=== PATIENT | female | born 1960 | race Caucasian/White ===

== ENCOUNTER 2018-08-24 17:42 | Emergency (ER) | payer OTHER ==
[~2018-08-24] VITALS: Ht 157.5 cm; Wt 71.4 kg
[2018-08-24 18:16] VITALS: Ht 157.5 cm; Wt 71.4 kg
[2018-08-24] MEDS ORDERED: IBUPROFEN 600 MG TAB PO ONE (19:00)
[2018-08-24 20:06] VITALS: BP 142/83; PULSE 72; RESP 16
[2018-08-24] MEDS ORDERED: CLON-379 PO (20:10)
[2018-08-24] MEDS ORDERED: AZIT500T3 PO (20:12)
[2018-08-24] MEDS ORDERED: IBUP-1542 PO (20:12)
--- NOTE | 2018-08-24 20:13 | ERD ---
ER Documentation Chief Complaint Chief Complaint C/O H/A AND BILATERAL EAR PAIN, PRESSURE FOR A MONTH HPI 57-year-old female presents to emergency department complaining of severe headache, bilateral ear pain and pressure x1 month. She reports that she has been hearing "roaring sounds" in her bilateral ears x1 month. She states that her symptoms are intermittent but worse today. She states no previous history of similar events. She denies any ear pain but states that she feels congested in the ears. In addition she reports a headache that is located around her eyes and back of her head. She reports tearing of her eyes. She has applied ice packs to the back of her head which has helped improve her symptoms. She reports the headache as 9 out of 10 intensity and states that nothing makes it better or worse. She denies radiation of her pain. Describes it as a throbbing pain She also reports hypertension history in which she takes amlodipine and HCTZ prescribed by her primary care however these 2 medications are not controlling her blood pressure very well even though patient reports good compliance Past medical history: Hypertension, hypothyroidism Allergies to penicillin ROS All systems reviewed and are negative except as per history of present illness. Medications Home Meds Active Scripts Ibuprofen* (Motrin*) 600 Mg Tab, 600 MG PO Q6H PRN for PAIN AND OR ELEVATED TEMP, #30 TAB Prov:CHANDAN THIBODEAUX PA-C 08/24/18 Azithromycin* (Zithromax*) 500 Mg Tablet, 500 MG PO DAILY for 3 Days, TAB Prov:CHANDAN THIBODEAUX PA-C 08/24/18 Clonidine Hcl* (Clonidine Hcl*) 0.1 Mg Tab, 0.1 MG PO TID, #10 TAB Prov:CHANDAN THIBODEAUX PA-C 08/24/18 PMhx/Soc Hx Cardiac Disorders: Yes (HTN) Hx Miscellaneous Medical Probl: Yes (HYPOTHYROIDISM) Hx Alcohol Use: No Hx Substance Use: No Hx Tobacco Use: No Smoking Status: Never smoker FmHx Family History: No diabetes Physical Exam Vitals Vital Signs Date Temp Pulse Resp B/P (MAP) Pulse Ox O2 O2 Flow FiO2 Time Delivery Rate 08/24/18 98.0 72 16 142/83 96 Room Air 20:06 (102) 08/24/18 98.3 79 18 208/97 97 18:16 (134) Physical Exam Const: No acute distress Head: Atraumatic, tenderness to the back right of her head, sinus pressure tenderness to the frontal sinuses Eyes: Normal Conjunctiva ENT: Normal External Ears, Nose and Mouth. Ears: Slight fluid present in bilateral ears Neck: Full range of motion. No meningismus. Resp: Clear to auscultation bilaterally Cardio: Regular rate and rhythm, no murmurs Abd: Soft, non tender, non distended. Normal bowel sounds Skin: No petechiae or rashes Back: No midline or flank tenderness Ext: No cyanosis, or edema Neur: Awake and alert Psych: Normal Mood and Affect Results 24 hrs Current Medications Medications Dose Sig/Gray Start Time Status Last (Trade) Ordered Route PRN Stop Time Admin Dose Reason Admin Clonidine 0.1 mg ONCE ONCE 08/24/18 DC 08/24/18 (Catapres) PO 19:00 18:44 08/24/18 19:01 Ibuprofen 600 mg ONCE ONCE 08/24/18 DC 08/24/18 (Motrin) PO 19:00 18:43 08/24/18 19:01 Procedures/MDM ED COURSE: The patient was stable throughout ED course. I kept the patient informed of laboratory and diagnostic imaging results throughout the ED course. DIAGNOSTIC IMAGING: Read by radiologist. PROCEDURE: CT Brain without contrast. CLINICAL INDICATION: New onset headache TECHNIQUE: A CT of the brain was performed on a [employer] 64-slice CT scanner utilizing axial imaging from the skull base through the vertex without IV contrast. Multiplanar reformatted images were made. Images were reviewed on a PACS workstation. The CTDIvol is 36.07 mGy and the DLP is 634.23 mGycm. DICOM images are available. One or more of the following dose reduction techniques were utilized: 1.) Automated exposure control 2.) Adjustment of the mA +/- kV according to patient's size 3.) Use of iterative reconstruction technique. COMPARISON: None FINDINGS: There is no intracranial hemorrhage, mass effect, or midline shift. No extra- axial fluid collection is seen. The ventricles and sulci are normal in size and configuration. The density of the brain is normal, and the bryant white matter differentiation appears well-preserved. The visualized paranasal sinuses and osseous structures are grossly unremarkable. IMPRESSION: 1. No evidence of acute intracranial pathology. Physician Cassandra Date Time Electronically viewed and signed by Bimal Stauffer Physician on 08/24/2018 19:23 PROCEDURES: none MEDICATIONS GIVEN: Clonidine, motrin MEDICAL DECISION MAKING: Patient is a 57-year-old female presenting with new onset of headache and ear pressure x1 month. She states that her symptoms are much worse today which is why she came to the ED. However in triage her blood pressure was recorded as 208/97. She states that she feels that her blood pressure is high. She normally takes amlodipine and HCTZ prescribed by her primary care and states good compliance to the medical regimen. However the medication is not helping manage her hypertension very well. Patient was given clonidine in the ED which brought her blood pressure down to 142/86. Physical exam patient showed sinus pressure, fluid in bilateral ears, and tenderness to the back of her head and across the sinuses and around the eyes. Patient was given Motrin as well in the ED which helped improve her symptoms with the clonidine bringing down her blood pressure. Patient was told to follow-up with primary care tomorrow in order to manage her hypertension symptoms. Since this was a sudden worsening headache, I consulted with Dr. Mckenzie which he recommended I ordered a CT scan of her brain which was negative. H&P and other data not c/w emergent process (eg. Subarachnoid hemorrhage, acute vertebral or carotid dissection, intracranial mass, epidural hematoma, subdural hematoma, dural venous sinus thrombosis, giant cell arteritis, pseudotumor cerebri, meningitis, mass, intracranial bleed). Vital signs were reviewed. Patient is afebrile. Patient was not hypoxic. Patient was hemodynamically stable. Patient was told to follow up with primary care for further care and management. PRESCRIPTION: Clonidine, Azitrhomycin, motrin DISCHARGE: At this time, patient is stable for discharge and outpatient management. I have instructed the patient to follow-up with his/her primary care physician in 1-2 days. I have discussed with the patient the possibility of needing to see a specialist for further workup and imaging studies if symptoms persist. I have instructed the patient to promptly return to the ER for any new or worsening symptoms including increased pain, fever, nausea, vomiting, weakness or LOC. The patient expressed understanding of and agreement with this plan. All questions were answered. Home care instructions were provided. Disclaimer: Inadvertent spelling and grammatical errors are likely due to EHR/dictation software use and do not reflect on the overall quality of patient care. Also, please note that the electronic time recorded on this note does not necessarily reflect the actual time of the patient encounter. Departure Diagnosis: Primary Impression: HTN (hypertension) Hypertension type: unspecified Qualified Codes: I10 - Essential (primary) hypertension Additional Impressions: Headache Headache type: unspecified Headache chronicity pattern: acute headache Intractability: not intractable Qualified Codes: R51 - Headache Ear pain Laterality: bilateral Qualified Codes: H92.03 - Otalgia, bilateral Condition: Fair Patient Instructions: High Blood Pressure (Hypertension) Referrals: [facility] YOU HAVE RECEIVED A MEDICAL SCREENING EXAM AND THE RESULTS INDICATE THAT YOU DO NOT HAVE A CONDITION THAT REQUIRES URGENT TREATMENT IN THE EMERGENCY DEPARTMENT. FURTHER EVALUATION AND TREATMENT OF YOUR CONDITION CAN WAIT UNTIL YOU ARE SEEN IN YOUR DOCTORS OFFICE WITHIN THE NEXT 1-2 DAYS. IT IS YOUR RESPONSIBILITY TO MAKE AN APPOINTMENT FOR FOL-UP CARE. IF YOU HAVE A PRIMARY DOCTOR --you should call your primary doctor and schedule an appointment IF YOU DO NOT HAVE A PRIMARY DOCTOR YOU CAN CALL OUR PHYSICIAN REFERRAL HOTLINE AT IF YOU CAN NOT AFFORD TO SEE A PHYSICIAN YOU CAN CHOSE FROM THE FOLLOWING [facility] [address] [facility]. [facility] [address] [facility] [facility] [address] [facility] [address] [facility] [facility] [address] [facility] [facility]. [address] [facility]. [facility] YOU HAVE RECEIVED A MEDICAL SCREENING EXAM AND THE RESULTS INDICATE THAT YOU DO NOT HAVE A CONDITION THAT REQUIRES URGENT TREATMENT IN THE EMERGENCY DEPARTMENT. FURTHER EVALUATION AND TREATMENT OF YOUR CONDITION CAN WAIT UNTIL YOU ARE SEEN IN YOUR DOCTORS OFFICE WITHIN THE NEXT 1-2 DAYS. IT IS YOUR RESPONSIBILITY TO MAKE AN APPOINTMENT FOR [facility]. IF YOU HAVE A PRIMARY DOCTOR --you should call your primary doctor and schedule and appointment IF YOU DO NOT HAVE A PRIMARY DOCTOR YOU CAN CALL OUR PHYSICIAN REFERRAL HOTLINE AT . IF YOU CAN NOT AFFORD TO SEE A PHYSICIAN YOU CAN CHOSE FROM THE FOLLOWING [facility] INSTITUTIONS: [facility] [address] [place] [address] [facility] [address] [place] [address] [facility] [address] [place] [address] Additional Instructions: Llame al doctor MAANA y bladimir leilani FITZ PARA DENTRO DE 1-2 BERUMEN.Dgale a la secretaria que nosotros le instruimos hacer esta fitz.Avise o llame si escalante condicin se empeora antes de la fitz. Regresa aqui si peor o no mejor. CHANDAN THIBODEAUX PA-C Aug 24, 2018 20:13
== END 2018-08-24 20:19 | disposition home or self-care (01) ==
LOC: FTE 17:42
DX: I10 Essential (primary) hypertension (principal); E03.9 Hypothyroidism, unspecified; H92.03 Otalgia, bilateral
CPT/HCPCS: 70450; Z7502; Z7610